=== PATIENT | female | born 1945 | race Caucasian/White ===

== ENCOUNTER → 2016-12-13 | Outpatient (CLI) | payer MEDICARE, OTHER | END | disposition home or self-care (01) | LOC: GMAB 10:23 | PROVIDERS: ATTEND Family Medicine | DX: R30.0 Dysuria (principal); C67.9 Malignant neoplasm of bladder, unspecified ==

== ENCOUNTER → 2016-12-25 | Outpatient (CLI) | payer MEDICARE, OTHER | END | disposition home or self-care (01) | LOC: CT 07:52 | PROVIDERS: ATTEND Urology | DX: C67.4 Malignant neoplasm of posterior wall of bladder (principal) ==

== ENCOUNTER → 2017-06-10 | Outpatient (CLI) | payer MEDICARE, OTHER | END | disposition home or self-care (01) | LOC: GMAB 11:12 | PROVIDERS: ATTEND Family Medicine | DX: I10 Essential (primary) hypertension (principal) ==

== ENCOUNTER 2018-01-12 05:36 | Day surgery (SDC) | payer MEDICARE, OTHER ==
[2018-01-12] MEDS ORDERED: TROP 1%/CYCLOPEN 1%/PHENYL 2% DROPS ONE (05:59)
[2018-01-12] MEDS ORDERED: MIDAZOLAM INJ 2 MG/2 ML VIAL ONE (11:41)
[2018-01-12] MEDS ORDERED: PROPARACAINE 0.5% OPHTH SOL 15 ML BTTL RIGHT_EYE ONE ×2 (11:52→12:06)
[2018-01-12] MEDS ORDERED: TOBRAMYCIN SULF 0.3 % OPHT SOL 1 DROP RIGHT_EYE ONE ×2 (12:06→12:30)
[2018-01-12] MEDS ORDERED: BRIMONIDINE 0.2% OPHTH DROPS RIGHT_EYE ONE ×2 (12:07→12:30)
[2018-01-12] MEDS ORDERED: DEXAMETHASONE 0.1% OPHTH SOL 1 DROP RIGHT_EYE ONE ×2 (12:07→12:30)
== END 2018-01-12 12:55 | disposition home or self-care (01) ==
LOC: AMB 05:36
PROVIDERS: ATTEND Ophthalmology
DX: H25.11 Age-related nuclear cataract, right eye (principal); I10 Essential (primary) hypertension; K21.9 Gastro-esophageal reflux disease without esophagitis; Z85.51 Personal history of malignant neoplasm of bladder; Z90.5 Acquired absence of kidney; Z79.899 Other long term (current) drug therapy
CPT/HCPCS: 00142; 66984; J2250

== ENCOUNTER → 2018-07-30 | Outpatient (CLI) | payer MEDICARE, OTHER | LOC: GMAE 14:47 | PROVIDERS: ATTEND Family Medicine | DX: I10 Essential (primary) hypertension (principal) ==

== ENCOUNTER → 2019-12-07 | Outpatient (CLI) | payer MEDICARE, OTHER ==
--- NOTE | 2019-12-07 11:53 | CT ---
EXAM DESCRIPTION: Abdoment/Pelvis w/o Contrast CLINICAL HISTORY: 74 years Female, BLADDER CANCER COMPARISON: 25 December 2016 TECHNIQUE: Transaxial images were obtained without intravenous or oral contrast media. Sagittal and coronal reconstruction was performed.This exam was performed according to our departmental dose-optimization program, which includes automated exposure control, adjustment of the mA and/or kV according to patient size and/or use of iterative reconstruction technique. FINDINGS: The lung bases are clear. A small hiatus hernia is observed. The liver is unremarkable. No biliary ductal dilatation is observed. The gallbladder is normal in appearance. The spleen is at the upper limits of normal in size. No adrenal masses are detected. The pancreas is normal in appearance. Imaging of the right kidney reveals no evidence of hydronephrosis mass cyst or calcification. The left kidney has been removed. Surgical clips are seen in the region of the renal bed. Calcific atherosclerotic changes observed in the abdominal aorta without evidence of aneurysmal dilatation. Diverticulosis of the colon is observed without evidence of diverticulitis. The patient is post hysterectomy. No inguinal region abnormality is seen. Mild convexity of the lumbar spine of the right is observed. Mild degenerative changes are noted. The urinary bladder is imaged is normal. IMPRESSION: 1. No evidence of recurrence or metastatic neoplasm is detected. 2. Hiatus hernia. 3. Left nephrectomy. 4. Uncomplicated diverticulosis of the colon. 5. Hysterectomy Electronically signed by: Donte Landeros MD 12/07/2019 11:51 AM CDT
== END ==
LOC: CT 08:57
PROVIDERS: ATTEND Urology
DX: Z01.812 Encounter for preprocedural laboratory examination (principal); C67.4 Malignant neoplasm of posterior wall of bladder; C66.2 Malignant neoplasm of left ureter; C65.9 Malignant neoplasm of unspecified renal pelvis; K44.9 Diaphragmatic hernia without obstruction or gangrene; K57.30 Diverticulosis of large intestine without perforation or abscess without bleeding; Z90.5 Acquired absence of kidney; Z90.710 Acquired absence of both cervix and uterus